=== PATIENT | male | born 1935 | race Two or more races ===

== ENCOUNTER 2021-02-25 11:23 | Emergency (ER) | payer OTHER ==
[~2021-02-25] VITALS: Ht 188 cm; Wt 70.3 kg
[2021-02-25 12:58] LABS: Urine Bacteria FEW /hpf (None Seen); Urine Blood Negative /uL (Negative); Urine Hyaline Cast MANY /lpf (0 - 2); Urine Mucus FEW (None Seen); Urine Specific Gravity 1.025 (1.001-1.035); Urine WBC 16 /hpf (0 - 3)
[2021-02-25] MEDS ORDERED: SODIUM CHLORIDE 0.9% 500 ML IV ONE (13:00)
[2021-02-25 13:02] LABS: Basophils # (auto) 0 10 ^3/uL (0-0.2); Basophils % (auto) 1.1 % (0.0-2.0); Eosinophils # (auto) 0 10 ^3/uL (0-0.8); Eosinophils % (auto) 0.5 % (0.0-7.0); Hematocrit 41.6 % (41.0-53.0); Hemoglobin 14.2 g/dL (13.5-17.5); Lymphocytes # (auto) 0.9 10 ^3/uL (0.4-5.4); Lymphocytes % (auto) 20.3 % (10.0-50.0); Mean Corpuscular Hemoglobin 33.2 pg (28.0-32.0); Mean Corpuscular Volume 97.4 fL (80.0-100.0); Monocytes # (auto) 0.6 10 ^3/uL (0-1.3); Monocytes % (auto) 13.2 % (0.0-12.0); Neutrophils # (auto) 2.8 10 ^3/uL (1.6-8.6); Neutrophils % (auto) 64.9 % (37.0-80.0); Nucleated Red Blood Cells % 0.1 %; Red Blood Cells 4.27 10^6/uL (4.5-5.90); Red Cell Distribution Width 13.5 % (11.8-14.3); White Blood Cell 4.3 10^3/uL (4.4-10.8)
[2021-02-25 13:11] LABS: Albumin 3.1 g/dL (3.4-5.0); Anion Gap 3 (5-15); Blood Urea Nitrogen 30 mg/dL (7-18); Carbon Dioxide 29 mmol/L (21-32); Chloride 110 mmol/L (98-107); Glucose 102 mg/dL (74-106); Potassium 4.3 mmol/L (3.5-5.1); Sodium 142 mmol/L (136-145)
[2021-02-25 13:16] LABS: Alanine Aminotransferase 18 U/L (16-61); Alkaline Phosphatase 79 U/L (45-117); Aspartate Aminotransferase 17 U/L (15-37); BUN/Creatinine Ratio 21.7; Bilirubin, Total 0.2 mg/dL (0.2-1.0); GFR African American 63 mL/min; GFR Non-African American 52 mL/min; Total Protein 6.5 g/dL (6.4-8.2)
[2021-02-25 14:00] VITALS: BP 123/63
== END 2021-02-25 15:30 | disposition left against medical advice (07) ==
LOC: ER 11:27
DX: U07.1 COVID-19 (principal); I95.9 Hypotension, unspecified; N39.0 Urinary tract infection, site not specified; F17.210 Nicotine dependence, cigarettes, uncomplicated
CPT/HCPCS: 36415; 71045; 80053; 81001; 82728; 84484; 85025; 86141; 87426; 96360; 99284; J7030; 93005

== ENCOUNTER 2022-10-29 15:20 | Emergency (ER) | payer OTHER ==
[~2022-10-29] VITALS: Ht 188 cm; Wt 82.0 kg
[2022-10-29 23:10] VITALS: BP 138/66
== END 2022-10-29 23:13 | disposition home or self-care (01) ==
LOC: EDBD 15:20 → ER 15:20 → EDUNIT# 15:20 → ER 23:13
DX: T83.021A Displacement of indwelling urethral catheter, initial encounter (principal); F17.210 Nicotine dependence, cigarettes, uncomplicated; Z87.442 Personal history of urinary calculi
CPT/HCPCS: 51702

== ENCOUNTER 2022-12-08 16:03 | Inpatient (IN) | payer OTHER ==
[~2022-12-08] VITALS: Ht 188 cm; Wt 71.6 kg
[2022-12-08 17:01] LABS: Basophils # (auto) 0.2 10 ^3/uL (0-0.2); Basophils % (auto) 1.3 % (0.0-2.0); Eosinophils # (auto) 0 10 ^3/uL (0-0.8); Eosinophils % (auto) 0.3 % (0.0-7.0); Hemoglobin 13.9 g/dL (13.5-17.5); Lymphocytes # (auto) 0.9 10 ^3/uL (0.4-5.4); Lymphocytes % (auto) 7.3 % (10.0-50.0); Mean Corpuscular Hemoglobin 33.2 pg (28.0-32.0); Mean Corpuscular Hgb Conc. 33.8 g/dL (32.0-36.0); Mean Corpuscular Volume 98.4 fL (80.0-100.0); Monocytes # (auto) 1.1 10 ^3/uL (0-1.3); Monocytes % (auto) 8.8 % (0.0-12.0); Neutrophils # (auto) 10.4 10 ^3/uL (1.6-8.6); Neutrophils % (auto) 82.3 % (37.0-80.0); Red Blood Cells 4.17 10^6/uL (4.5-5.90); Red Cell Distribution Width 14.3 % (11.8-14.3); White Blood Cell 12.6 10^3/uL (4.4-10.8)
[2022-12-08 17:24] LABS: Albumin 2.9 g/dL (3.4-5.0); BUN/Creatinine Ratio 15.2 (10.0-20.0); Calcium 8.6 mg/dL (8.5-10.1)
[2022-12-08 17:34] LABS: Bilirubin, Total 0.5 mg/dL (0.2-1.0); Total Protein 6.2 g/dL (6.4-8.2)
[2022-12-08 18:09] LABS: Potassium 5.7 mmol/L (3.5-5.1)
[2022-12-08] MEDS ORDERED: fentaNYL CITRATE 100 MCG/2 ML VL IV ONE (20:15)
[2022-12-08] MEDS ORDERED: KETOROLAC TROMETH 30 MG/ML 1ML VIAL IV ONE (20:15)
[2022-12-09 01:00] VITALS: BP 114/80
[2022-12-09] MEDS ORDERED: MORPHINE SULFATE INJ 2 MG/ml SYRG IV PRN (01:00)
[2022-12-09] MEDS ORDERED: ALBUTEROL SULF 2.5 MG/0.5ML(0.5%) NEB SOLN NEB PRN (01:00)
[2022-12-09] MEDS ORDERED: cefTRIAXone 1GM/50ML D5W 50 ML IV SCH (01:00)
[2022-12-09] MEDS ORDERED: ACETAMINOPHEN 325 MG TAB PO PRN (01:00)
[2022-12-09] MEDS ORDERED: AZITHROMYCIN 500MG/ 250ML 250 ML IV SCH (01:00)
[2022-12-09] MEDS ORDERED: FUROSEMIDE 40 MG/4 ML VIAL IV ONE (01:00)
[2022-12-09] MEDS ORDERED: ONDANSETRON HCL 4 MG/2 ML VIAL IV PRN (01:00)
[2022-12-09] MEDS ORDERED: NITROGLYCERIN 0.4 MG SL TAB SL PRN (01:00)
[2022-12-09] MEDS ORDERED: SODIUM ZIRCONIUM CYCL 10 GM PAK PO ONE ×2 (01:00→11:45)
[2022-12-09] MEDS ORDERED: HYDROcodone-ACET 5/325MG TAB PO PRN (01:00)
[2022-12-09 01:54] LABS: Basophils # (auto) 0.2 10 ^3/uL (0-0.2); Basophils % (auto) 1.6 % (0.0-2.0); Eosinophils # (auto) 0.1 10 ^3/uL (0-0.8); Eosinophils % (auto) 0.9 % (0.0-7.0); Lymphocytes # (auto) 1.2 10 ^3/uL (0.4-5.4); Lymphocytes % (auto) 11.9 % (10.0-50.0); Mean Corpuscular Hemoglobin 33.4 pg (28.0-32.0); Mean Corpuscular Hgb Conc. 33.4 g/dL (32.0-36.0); Monocytes # (auto) 0.7 10 ^3/uL (0-1.3); Monocytes % (auto) 7.3 % (0.0-12.0); Neutrophils # (auto) 7.8 10 ^3/uL (1.6-8.6); Neutrophils % (auto) 78.3 % (37.0-80.0); Red Cell Distribution Width 14.5 % (11.8-14.3); White Blood Cell 9.9 10^3/uL (4.4-10.8)
[2022-12-09 02:13] LABS: Albumin 2.6 g/dL (3.4-5.0); BUN/Creatinine Ratio 14.6 (10.0-20.0); Calcium 8.7 mg/dL (8.5-10.1)
[2022-12-09 02:16] LABS: Bilirubin, Total 0.4 mg/dL (0.2-1.0); Total Protein 6.3 g/dL (6.4-8.2)
[2022-12-09 02:31] LABS: Potassium 6.1 mmol/L (3.5-5.1)
[2022-12-09] MEDS ORDERED: FUROSEMIDE 20 MG/2 ML VIAL IV SCH (06:00)
[2022-12-09 07:25] LABS: Albumin 2.8 g/dL (3.4-5.0); BUN/Creatinine Ratio 13.3 (10.0-20.0); Bilirubin, Total 0.4 mg/dL (0.2-1.0); Calcium 8.7 mg/dL (8.5-10.1); Total Protein 6.6 g/dL (6.4-8.2)
[2022-12-09 07:54] LABS: Potassium 5.7 mmol/L (3.5-5.1)
[2022-12-09] MEDS ORDERED: ALBUTEROL SULF 2.5 MG/0.5ML(0.5%) NEB SOLN NEB ONE (11:45)
[2022-12-09] MEDS ORDERED: SODIUM BICARBONATE 8.4 % INJ 50ML VIAL IV ONE (11:45)
[2022-12-09 12:22] LABS: Cholesterol 139 mg/dL (< 200); HDL Cholesterol 69 mg/dL (40-59); LDL Cholesterol 62 mg/dL (< 100); Triglycerides 47 mg/dL (< 150)
[2022-12-09] MEDS: ENOXAPARIN SOD 80 MG/0.8ML SYRINGE SC SCH (13:46)
[2022-12-09 16:57] LABS: Protein, Urine 29.5 mg/dL (0.0-11.9); Sodium Urine 56 mmol/L (40-220)
[2022-12-09 17:00] LABS: Alcohol, Urine < 3.0 mg/dL (0-10); Barbiturate Scree,Urine NEGATIVE (NEGATIVE); Benzodiazephine Screen, Urine NEGATIVE (NEGATIVE); Cannabinoid Screen, Urine NEGATIVE (NEGATIVE); Cocaine Screen, Urine NEGATIVE (NEGATIVE); Creatinine, Urine 64 mg/dL (30.0-125.0); Opiate Scree,Urine NEGATIVE (NEGATIVE); Phencyclidine Screen, Urine NEGATIVE (NEGATIVE)
[2022-12-09 17:01] LABS: Amphetamine Screen, Urine POSITIVE (NEGATIVE)
[2022-12-09] MEDS: SODIUM ZIRCONIUM CYCL 10 GM PAK PO SCH ×2 (17:35→22:00)
[2022-12-09] MEDS: SODIUM CHLORIDE 0.9% 1,000 ML IV SCH (17:36)
[2022-12-09 19:06] VITALS: BP 123/66
[2022-12-09] MEDS: TAMSULOSIN HYDROCHLORIDE 0.4 MG CAP PO SCH (19:34)
[2022-12-09] MEDS: CEFEPIME 1GM/ 50ML 50 ML IV SCH (21:36)
[2022-12-09 22:00] VITALS: BP 123/66
[2022-12-10] MEDS: SODIUM CHLORIDE 0.9% 1,000 ML IV SCH ×2 (01:45→11:45)
[2022-12-10 05:00] VITALS: BP 121/66
[2022-12-10] MEDS: LEVOTHYROXINE SODIUM 50 MCG TAB PO SCH (06:23)
[2022-12-10] MEDS: SODIUM ZIRCONIUM CYCL 10 GM PAK PO SCH (06:23)
[2022-12-10 06:55] LABS: Basophils # (auto) 0.1 10 ^3/uL (0-0.2); Basophils % (auto) 0.9 % (0.0-2.0); Eosinophils # (auto) 0.1 10 ^3/uL (0-0.8); Eosinophils % (auto) 1.6 % (0.0-7.0); Hematocrit 36.8 % (41.0-53.0); Hemoglobin 12.3 g/dL (13.5-17.5); Lymphocytes # (auto) 0.7 10 ^3/uL (0.4-5.4); Lymphocytes % (auto) 11.1 % (10.0-50.0); Mean Corpuscular Hemoglobin 33.8 pg (28.0-32.0); Mean Corpuscular Hgb Conc. 33.5 g/dL (32.0-36.0); Monocytes # (auto) 0.5 10 ^3/uL (0-1.3); Monocytes % (auto) 8.2 % (0.0-12.0); Neutrophils # (auto) 5.2 10 ^3/uL (1.6-8.6); Neutrophils % (auto) 78.2 % (37.0-80.0); Nucleated Red Blood Cells % 0.1 %; Red Blood Cells 3.65 10^6/uL (4.5-5.90); Red Cell Distribution Width 14.4 % (11.8-14.3); White Blood Cell 6.6 10^3/uL (4.4-10.8)
[2022-12-10 06:59] LABS: Calcium 8.2 mg/dL (8.5-10.1); Potassium 4.1 mmol/L (3.5-5.1)
[2022-12-10 07:01] LABS: BUN/Creatinine Ratio 21.6 (10.0-20.0)
[2022-12-10 09:06] VITALS: BP 115/70
[2022-12-10] MEDS: ENOXAPARIN SOD 80 MG/0.8ML SYRINGE SC SCH (09:36)
[2022-12-10] MEDS ORDERED: ENOXAPARIN SOD 30 MG/0.3 ML SYRINGE SC SCH (10:00)
[2022-12-10] MEDS ORDERED: POLYETHYLENE GLYCOL 17 GM PWDR PO ONE (10:45)
[2022-12-10] MEDS: LORazepam 2MG/ML-1ML VIAL IV PRN (10:48)
[2022-12-10 12:03] LABS: Urine Bacteria NONE SEEN /hpf (None Seen); Urine Blood 3+ /uL (Negative); Urine Specific Gravity 1.018 (1.001-1.035); Urine WBC 40 /hpf (0 - 3)
[2022-12-10 13:00] VITALS: BP 104/74
[2022-12-10 17:00] VITALS: BP 100/45
[2022-12-10] MEDS: TAMSULOSIN HYDROCHLORIDE 0.4 MG CAP PO SCH ×2 (17:37→17:51)
[2022-12-10 22:00] VITALS: BP 100/46
[2022-12-10] MEDS: CEFEPIME 1GM/ 50ML 50 ML IV SCH (22:30)
[2022-12-10] MEDS: LACTULOSE 20Gm/30ML SOLN PO SCH (22:31)
[2022-12-11] VITALS (7 sets, daily range): BP systolic 121–161; BP diastolic 48–93
[2022-12-11 06:05] LABS: Basophils # (auto) 0.1 10 ^3/uL (0-0.2); Eosinophils # (auto) 0.1 10 ^3/uL (0-0.8); Eosinophils % (auto) 2.2 % (0.0-7.0); Hematocrit 37.2 % (41.0-53.0); Hemoglobin 12.5 g/dL (13.5-17.5); Lymphocytes # (auto) 0.8 10 ^3/uL (0.4-5.4); Lymphocytes % (auto) 15.2 % (10.0-50.0); Mean Corpuscular Hemoglobin 33.3 pg (28.0-32.0); Mean Corpuscular Hgb Conc. 33.6 g/dL (32.0-36.0); Mean Corpuscular Volume 98.9 fL (80.0-100.0); Monocytes # (auto) 0.5 10 ^3/uL (0-1.3); Monocytes % (auto) 8.7 % (0.0-12.0); Neutrophils # (auto) 3.9 10 ^3/uL (1.6-8.6); Neutrophils % (auto) 72.9 % (37.0-80.0); Red Blood Cells 3.76 10^6/uL (4.5-5.90); Red Cell Distribution Width 14.3 % (11.8-14.3); White Blood Cell 5.4 10^3/uL (4.4-10.8)
[2022-12-11 06:18] LABS: BUN/Creatinine Ratio 32.2 (10.0-20.0); Calcium 8.9 mg/dL (8.5-10.1); Potassium 3.7 mmol/L (3.5-5.1)
[2022-12-11] MEDS: LEVOTHYROXINE SODIUM 50 MCG TAB PO SCH (07:00)
[2022-12-11] MEDS ORDERED: POLYETHYLENE GLYCOL 17 GM PWDR PO ONE (09:00)
[2022-12-11] MEDS: LACTULOSE 20Gm/30ML SOLN PO SCH ×2 (09:55→19:50)
[2022-12-11] MEDS: ENOXAPARIN SOD 80 MG/0.8ML SYRINGE SC SCH (09:56)
[2022-12-11] MEDS: LORazepam 2MG/ML-1ML VIAL IV PRN ×2 (09:57→21:50)
[2022-12-11] MEDS: SODIUM CHLORIDE 0.9% 1,000 ML IV SCH (10:02)
[2022-12-11] MEDS ORDERED: SODIUM CHLORIDE 0.9% 1,000 ML IV SCH (14:30)
[2022-12-11] MEDS: TAMSULOSIN HYDROCHLORIDE 0.4 MG CAP PO SCH (19:14)
[2022-12-11] MEDS ORDERED: LACTULOSE 20Gm/30ML SOLN PO PRN (20:15)
[2022-12-11] MEDS ORDERED: ENOXAPARIN SOD 80 MG/0.8ML SYRINGE SC SCH (22:00)
[2022-12-11] MEDS ORDERED: CEFEPIME 1GM/ 50ML 50 ML IV SCH (22:00)
== END 2022-12-11 22:50 | disposition short-term general hospital (02) | DRG 682 ==
LOC: ER 16:03 → EDBD 16:03 → TELE 12-09 01:06 → TELE-WESTW 12-09 18:39
PROVIDERS: ADMIT Nurse Practitioner; ATTEND Nurse Practitioner Acute Care
DX: N17.9 Acute kidney failure, unspecified (principal); I50.43 Acute on chronic combined systolic (congestive) and diastolic (congestive) heart failure; I13.0 Hypertensive heart and chronic kidney disease with heart failure and stage 1 through stage 4 chronic kidney disease, or unspecified chronic kidney disease; E44.0 Moderate protein-calorie malnutrition; Z68.1 Body mass index [BMI] 19.9 or less, adult; I82.511 Chronic embolism and thrombosis of right femoral vein; N13.6 Pyonephrosis; E87.5 Hyperkalemia; N18.9 Chronic kidney disease, unspecified; E03.9 Hypothyroidism, unspecified; E87.6 Hypokalemia; F15.10 Other stimulant abuse, uncomplicated; F17.210 Nicotine dependence, cigarettes, uncomplicated; M16.11 Unilateral primary osteoarthritis, right hip; N40.0 Benign prostatic hyperplasia without lower urinary tract symptoms; Z20.822 Contact with and (suspected) exposure to COVID-19; G89.29 Other chronic pain; R79.89 Other specified abnormal findings of blood chemistry; Z87.440 Personal history of urinary (tract) infections; Z87.442 Personal history of urinary calculi
CPT/HCPCS: 36415; 51702; 71045; 71250; 73502; 76775; 78582; 80048; 80053; 80061; 80307; 81001; 82306; 82570; 83036; 83605; 83880; 83970; 84100; 84156; 84300; 84436; 84443; 84480; 84484; 85025; 85379; 87081; 87086; 87426; 93005; 93306; 93970; 94640; 96365; 96366; 96372; 96375; 96376; G0378; J0696; J1885

== ENCOUNTER 2022-12-24 04:36 | Emergency (ER) | payer OTHER ==
[~2022-12-24] VITALS: Ht 180.3 cm; Wt 110.0 kg
[2022-12-24 04:39] VITALS: BP 117/50
[2022-12-24 07:21] LABS: Urine Bacteria NONE SEEN /hpf (None Seen); Urine Blood 2+ /uL (Negative); Urine Hyaline Cast FEW /lpf (0 - 2); Urine Mucus FEW (None Seen); Urine Specific Gravity 1.012 (1.001-1.035); Urine WBC 127 /hpf (0 - 3); Urine WBC Clumps PRESENT /hpf (None Seen)
[2022-12-24] MEDS ORDERED: BACDST PO (07:32)
== END 2022-12-24 07:47 | disposition home or self-care (01) ==
LOC: ER 04:36 → EDBD 04:36 → ER 07:46
DX: N39.0 Urinary tract infection, site not specified (principal); R33.9 Retention of urine, unspecified; F17.210 Nicotine dependence, cigarettes, uncomplicated; Z87.442 Personal history of urinary calculi
CPT/HCPCS: 51702; 81001

== ENCOUNTER → 2022-12-24 | Emergency (ER) | payer OTHER ==
[~2022-12-24] VITALS: Ht 188 cm; Wt 68.1 kg
[~2022-12-24] MED LIST: BACDST PO
[2022-12-24 18:27] VITALS: BP 112/46
== END | disposition left against medical advice (07) ==
LOC: ER 18:23
DX: T83.098A Other mechanical complication of other urinary catheter, initial encounter (principal); Z53.21 Procedure and treatment not carried out due to patient leaving prior to being seen by health care provider